=== PATIENT | female | born 1945 | race Caucasian/White ===

== ENCOUNTER 2016-10-22 05:00 | Inpatient (IN) | payer OTHER, MEDICARE ==
[2016-10-06 10:09] VITALS: BMI 37.0
--- NOTE | 2016-10-06 10:38 | PAT Medication Instructions ---
Service Date Oct 06, 2016. Current Home Medication List Aspirin (Aspirin Ec), 81 MG PO QPM B-Complex W/ Folic Acid (Super B Complex Maxi), 1 TAB PO BID Diphenhydramine Hcl (Benadryl), 1 CAP PO HS PRN for Sleep Ferrous Sulfate (Ferrous Sulfate), 325 MG PO QAM Glyburide (Micronase), 2.5 MG PO QAM Hydrocodone/Acetaminophen 5MG/325MG (Reynolds 5MG/325MG), 1 TABLET PO Q4-6H PRN for Pain Metformin Hcl (Glucophage), 500 MG PO BID Omeprazole (Prilosec), 20 MG PO QAM Pravastatin Sod (Pravastatin Sodium), 40 MG PO HS Sertraline (Zoloft), 25 MG PO HS Sumatriptan Succinate (Imitrex), 25 MG PO PRN [Magnesium], 250 MG PO BID [Neurvasia Otc], 1 TAB PO QAM Medication Instructions For Your Scheduled Surgery - Hold the following medications 2 weeks prior to surgery: [Neurvasia Otc], 1 TAB PO QAM - Hold the following medications 48 hours prior to surgery: Metformin Hcl (Glucophage), 500 MG PO BID - Hold the following medications the morning of surgery: B-Complex W/ Folic Acid (Super B Complex Maxi), 1 TAB PO BID [Magnesium], 250 MG PO BID Ferrous Sulfate (Ferrous Sulfate), 325 MG PO QAM Glyburide (Micronase), 2.5 MG PO QAM - Take the following medications the morning of surgery with a sip of water OTHERWISE NOTHING TO EAT OR DRINK AFTER MIDNIGHT: Omeprazole (Prilosec), 20 MG PO QAM Sumatriptan Succinate (Imitrex), 25 MG PO PRN Hydrocodone/Acetaminophen 5MG/325MG (Reynolds 5MG/325MG), 1 TABLET PO Q4-6H PRN for Pain (may take if needed up to 4 hours prior to surgery) - Take the following medications as scheduled the night before surgery: Pravastatin Sod (Pravastatin Sodium), 40 MG PO HS Aspirin (Aspirin Ec), 81 MG PO QPM Sertraline (Zoloft), 25 MG PO HS B-Complex W/ Folic Acid (Super B Complex Maxi), 1 TAB PO BID [Magnesium], 250 MG PO BID Sumatriptan Succinate (Imitrex), 25 MG PO PRN Hydrocodone/Acetaminophen 5MG/325MG (Reynolds 5MG/325MG), 1 TABLET PO Q4-6H PRN for Pain Diphenhydramine Hcl (Benadryl), 1 CAP PO HS PRN for Sleep If you have any questions please call us at [phone] or [phone] or [phone]
[2016-10-06 10:55] LABS: BASO % 0.6 %; BASO ABS # 0.04 K/uL (0-0.2); COMPLETE YES; EOS % 2.4 %; IG% 0.3 %; LYMPH % 22.8 %; LYMPH ABS # 1.65 K/uL (1.2-3.4); MEAN CELL VOLUME 78.9 fL (80-100); MEAN CORPUSCULAR HEMOGLOBIN 26.7 pg (25-34); MEAN CORPUSCULAR HGB CONC 33.8 g/dl (32-36); MEAN PLATELET VOLUME 9.3 fL (7.4-10.4); MONO % 6.5 %; NEUT % 67.4 %; PLATELET COUNT 204 K/uL (130-400); RED BLOOD COUNT 4.69 M/uL (4.2-5.4); WHITE BLOOD COUNT 7.23 K/uL (4.8-10.8)
[2016-10-06 11:26] LABS: BUN/CREATININE RATIO 23.2 (10-20); CALCIUM 9.2 mg/dl (8.5-10.1); CREATININE 0.69 mg/dl (0.60-1.20)
--- NOTE | 2016-10-21 08:24 | HISTORY & PHYSICAL EXAMINATION ---
DATE OF ADMISSION: 10/22/2016 CHIEF COMPLAINT: Quad tear of the right knee. HISTORY OF PRESENT ILLNESS: Raissa is a very pleasant 71-year-old female who underwent a primary right total knee arthroplasty for osteoarthritis in November of 2015. She was doing extremely well postoperatively but unfortunately she fell hard onto her knee in June. X-rays did show a crack in her patella. It was nondisplaced and we treated it conservatively. The patella healed. Unfortunately, she was having weakness with extension. She was having trouble with her quad strength, trouble going up and down stairs, and trouble getting out from a low chair. Closer examination revealed possible dehiscence of the superior medial quad repair. She elected to undergo a quad tendon repair. She understands the risks, benefits, alternatives to the procedure and has elected to proceed. PAST MEDICAL HISTORY: Osteoarthritis, anemia, GERD, colon polyps, pulmonary nodule on the right, dyslipidemia and type 2 diabetes. MEDICATIONS: [place] every 4-6 hours as needed for pain, aspirin 81 mg daily, vitamin B complex 1 tab twice a day, Benadryl 25 mg at night as needed, iron 325 mg daily, Micronase 2.5 mg daily, Glucophage 500 mg twice a day, Prilosec 20 mg daily, pravastatin 40 mg at night, Zoloft 25 mg at night, Imitrex 25 mg as needed. PAST SURGICAL HISTORY: Significant for colonoscopy, several rotator cuff repairs by Dr. Licea most recent being in 2012, as well as a left reverse total shoulder arthroplasty by Dr. Kehinde Meredith in 2014, a right total knee arthroplasty by Dr. Kehinde Meredith in November of 2015. ALLERGIES: NIACIN. FAMILY HISTORY: Noncontributory. SOCIAL HISTORY: She is single. She is a former smoker for 41 years. Denies any alcohol use. She is currently living in [place]. She is originally from [place] and moved here from [place]. REVIEW OF SYSTEMS: She complains of right knee pain and weakness. All other pertinent review of systems are negative. PHYSICAL EXAMINATION: GENERAL: She is awake, alert and oriented x3. She is in no apparent distress. She is very pleasant. HEENT: Pupils equal, round and reactive to light. Extraocular movements intact. Oral mucosa is pink and moist. HEART: Regular rate per radial pulse. LUNGS: Kirsten symmetrically bilaterally with no audible breath sounds. ABDOMEN: Soft, nontender, nondistended. MUSCULOSKELETAL: On physical examination she has good range of motion. She has a few degrees shy of full extension. She has 120 degrees of flexion. She has no ligament instability. There is no swelling or effusion. Most of her pain is located along the superior medial border of the patella. She has deformity in the quad when she extends her knee completely. She also has quad weakness. IMPRESSION: Quad rupture of the right knee. PLAN: I think it is reasonable to proceed with a quadriceps tendon repair. She understands the risks, benefits, alternatives to procedure and elected to proceed. After this is repaired will likely keep her in the hospital overnight and for postop medical observation and send her home the following day, but will see how she is doing. If she is does real well postoperatively we may also discharge her to home.
[2016-10-22] VITALS (9 sets, daily range): BP systolic 126–151; BP diastolic 72–82; PULSE 51–71; TEMP 36.4–36.8; O2SAT 93–97; Ht 172.7 cm; Wt 112.1 kg
[~2016-10-22] VITALS: Ht 172.7 cm; Wt 112.1 kg
[~2016-10-22 05:00] MED LIST: ASPI81TA28 PO; B-CO-25 PO; DIPH25CA37 PO; FRRS300 PO; GLC/500 PO; GLYB-108 PO; HYDR-5688 PO; MAGNESIUM PO; PRLSR20 PO; PRVC/40 PO; SERT25TA PO; SUMA25TA12 PO; [UNRECOGNIZED DRUG - OTHER] PO
[2016-10-22] MEDS ORDERED: LACTATED RINGER'S 1000ML 1,000 ML IV SCH (06:00)
[2016-10-22] MEDS ORDERED: LACTATED RINGER'S 1000ML IV SCH (06:00)
[2016-10-22] MEDS ORDERED: CEFAZOLIN 2000 MG/60 ML D5W 60 ML IV SCH (06:00)
[2016-10-22] MEDS ORDERED: GABAPENTIN 300 MG CAP PO SCH (06:00)
[2016-10-22] MEDS ORDERED: ACETAMINOPHEN 500 MG TAB PO SCH (06:00)
[2016-10-22] MEDS ORDERED: FAMOTIDINE 20 MG TAB PO SCH (06:00)
[2016-10-22] MEDS ORDERED: BUPIVACAINE 0.25% 30 ML VIAL ONE (06:24)
--- NOTE | 2016-10-22 06:33 | History & Physical Bridge Note ---
H&P Re-Evaluation Bridge Note: I have examined the patient, reviewed the History & Physical and in the interval since the performance of the History & Physical I have noted the following changes of clinical significance: No changes noted
[2016-10-22] MEDS ORDERED: MIDAZOLAM HCL 1 MG/ML 2ML VIAL ONE ×2 (06:41)
[2016-10-22] MEDS ORDERED: FENTANYL CITRATE INJ 50 MCG/1 ML 2 ML VIAL ONE ×2 (06:41→08:30)
[2016-10-22] MEDS ORDERED: BACITRACIN 50000 UNIT VIAL ONE (07:20)
[2016-10-22] MEDS ORDERED: DEXAMETHASONE SOD INJ 4 MG/ML VIAL ONE (07:29)
[2016-10-22] MEDS ORDERED: ONDANSETRON INJ 2 MG/ML 2 ML VIAL ONE (07:29)
[2016-10-22] MEDS ORDERED: PROPOFOL IV EMULSION 10 MG/ML 20 ML VIAL IV ONE (07:29)
--- NOTE | 2016-10-22 08:09 | [facility] Post Operative Brief Note ---
Immediate Operative Summary Operative Date Oct 22, 2016. Pre-Operative Diagnosis Quadriceps Tear Right Knee Post-Operative Diagnosis Quadriceps Tear Right Knee Procedure(s) Performed Right Quadriceps Repair Surgeon Dr. Meredith School Child Care Attendant Surgeon(s) RACHANA Yanes Estimated Blood Loss 2 ml Findings as above Specimens none per surgeon Complication(s) None Disposition Recovery Room / PACU
[2016-10-22] MEDS ORDERED: MAGNESIUM HYDROXIDE SUSP 30 ML UDC PO PRN (08:15)
[2016-10-22] MEDS ORDERED: SOD PHOSPHATE/SOD BIPHOSPHATE ENEMA 132 ML BTL PR PRN (08:15)
[2016-10-22] MEDS ORDERED: OXYCODONE HCL IR 5 MG TAB (IMMEDIATE RELEASE) PO PRN (08:15)
[2016-10-22] MEDS ORDERED: MoRPHine SULFATE 2 MG/ML CARP IV PRN (08:15)
[2016-10-22] MEDS ORDERED: ONDANSETRON INJ 2 MG/ML 2 ML VIAL IV PRN ×2 (08:15→08:30)
[2016-10-22] MEDS ORDERED: BISACODYL 10 MG SUPP PR PRN (08:15)
[2016-10-22] MEDS ORDERED: METOCLOPRAMIDE HCL INJ 5 MG/ML 2 ML VIAL IV PRN (08:15)
--- NOTE | 2016-10-22 08:21 | OPERATIVE REPORT ---
DATE OF OPERATION: 10/22/2016 PREOPERATIVE DIAGNOSIS: Quad tendon tear of the right knee. POSTOPERATIVE DIAGNOSIS: Same. PROCEDURE: Open quad tendon repair. SURGEON: Dr. Kehinde Meredith. DIRECTOR ONCOLOGY: Kehinde Massey PA-C, whose assistance was necessary for helping with retraction. ANESTHESIA: General with a right adductor nerve block. COMPLICATIONS: None. CONDITION: Stable to PACU. INDICATIONS: Raissa is a pleasant 71-year-old female who underwent a total knee arthroplasty a year ago. She fell hard on her knee about 5 months ago sustaining a nondisplaced patella fracture. The fracture went on to heal nicely but she noticed a decreased strength in her quad. I did notice that there was clinically a dehiscence in the superomedial aspect of her previous quad repair from the medial parapatellar approach. She elected to undergo a quad repair. OPERATION AND FINDINGS: On 10/22/2016 she arrived at [facility] for the above procedure. She was seen in the preoperative holding area and the operative extremity was identified and signed. She was given a preoperative antibiotic, taken back to the operating room, laid on the table in supine position and put under general anesthesia. The right leg was then prepped and draped in sterile fashion. Time-out was done and the patient and operative extremity was properly identified. An incision was made directly over the old incision site. Dissection was taken down through the fascia and the extensor mechanism was exposed. There was an obvious area of weakness between the vastus medialis and the central quad tendon. This area of weakness was removed with a sharp knife and [place] scissors. Once I had good thick tendinous tissue from both the VMO and the central quad the knee was irrigated with normal saline solution of bacitracin and the quad was repaired with #2 Vicryl sutures in the superior medial aspect and #1 Vicryl suture in the remaining proximal and distal portions. This gave an excellent repair. The knee was brought through a full range of motion and felt to be stable. The skin was then closed with 2-0 Vicryl, running 3-0 V-Loc suture and a Prineo dressing. She was then placed in a compressive dressing, extubated, [facility] and taken to the postanesthesia care unit in stable condition. She tolerated the procedure well. I attest to the content of the Intraoperative Record and any orders documented therein. Any exceptio ns are noted below.
[2016-10-22] MEDS ORDERED: HYDROmorphone INJ 1 MG/ML SYR IV PRN (08:30)
[2016-10-22] MEDS ORDERED: FENTANYL CITRATE INJ 50 MCG/1 ML 2 ML VIAL IV PRN (08:30)
[2016-10-22] MEDS ORDERED: ATROPINE SULFATE 0.1 MG/ML 5ML SYR IV PRN (08:30)
[2016-10-22] MEDS ORDERED: EpHEDrine SULFATE INJ 50 MG/ML AMP IV PRN (08:30)
--- NOTE | 2016-10-22 09:08 | Anesthesiology Progress Note ---
Anesthesia Post Op Note Date & Time Oct 22, 2016 at 09:08 Vital Signs Pain Intensity: 3 Vital Signs Past 12 Hours Date Time Temp Pulse Resp B/P Pulse Ox O2 Delivery O2 Flow Rate FiO2 10/22/16 08:55 36.1 72 12 162/79 97 Nasal Cannula 2 10/22/16 08:54 72 14 97 10/22/16 08:54 74 14 10/22/16 08:53 162/79 10/22/16 08:50 36.1 79 16 148/74 98 Nasal Cannula 2 10/22/16 08:49 71 15 10/22/16 08:49 72 15 98 10/22/16 08:48 148/74 10/22/16 08:44 76 16 98 10/22/16 08:44 75 16 10/22/16 08:43 147/71 10/22/16 08:40 72 17 10/22/16 08:40 72 17 98 10/22/16 08:38 151/70 10/22/16 08:35 73 14 94 10/22/16 08:35 74 14 10/22/16 08:33 145/84 10/22/16 08:30 76 13 99 10/22/16 08:30 76 13 10/22/16 08:28 154/78 10/22/16 08:25 78 12 10/22/16 08:25 78 12 98 10/22/16 08:23 132/78 10/22/16 08:20 80 10 10/22/16 08:20 80 10 98 10/22/16 08:18 136/85 10/22/16 08:15 36.3 85 12 131/75 97 Mask 10 10/22/16 08:15 84 10 97 10/22/16 08:15 86 10 10/22/16 05:42 36.6 68 20 131/76 96 Room Air Notes Mental Status: alert / awake / arousable, participated in evaluation Pt Amnestic to Procedure: Yes Nausea / Vomiting: adequately controlled Pain: adequately controlled Airway Patency, RR, SpO2: stable & adequate BP & HR: stable & adequate Hydration State: stable & adequate Anesthetic Complications: no major complications apparent
[2016-10-22] MEDS: SODIUM CHLORIDE 0.9% 1000ML 1,000 ML IV SCH ×2 (09:30→17:54)
[2016-10-22] MEDS: PANTOprazole SOD 40 MG TAB PO SCH (11:51)
[2016-10-22] MEDS: DOCUSATE SODIUM 100 MG CAP PO SCH ×2 (11:51→21:19)
[2016-10-22] MEDS: MULTIVITAMIN TAB PO SCH (11:51)
[2016-10-22] MEDS: FERROUS SULFATE 325 MG TAB PO SCH (11:51)
[2016-10-22] MEDS: METFORMIN HCL 500 MG TAB PO SCH ×2 (11:51→21:19)
[2016-10-22] MEDS: CEFAZOLIN IV 2,000 MG in DEXTROSE 5% 50ML 50 ML IV SCH ×2 (13:40→21:18)
[2016-10-22] MEDS: KETOROLAC TROMETHAMINE 15 MG/ML VIAL IV. SCH ×2 (15:47→21:18)
[2016-10-22] MEDS ORDERED: ASPIRIN 81 MG ECTAB PO SCH (21:00)
[2016-10-22] MEDS ORDERED: PRAVASTATIN SOD 40 MG TAB PO SCH (21:00)
[2016-10-22] MEDS ORDERED: SENNA 8.6 MG TAB PO SCH (21:00)
[2016-10-22] MEDS ORDERED: SERTRALINE HCL 50 MG TAB PO SCH (21:00)
[2016-10-22] MEDS: ASPIRIN 325 MG ECTAB PO SCH (21:20)
[2016-10-23 03:20] VITALS: BP 111/58; PULSE 65; TEMP 36.8; O2SAT 94
[2016-10-23] MEDS: KETOROLAC TROMETHAMINE 15 MG/ML VIAL IV. SCH ×2 (04:02→10:27)
[2016-10-23] MEDS: SODIUM CHLORIDE 0.9% 1000ML 1,000 ML IV SCH (04:02)
[2016-10-23 07:23] VITALS: BP 132/66; PULSE 62; TEMP 36.7; O2SAT 95
[2016-10-23 08:01] VITALS: BP 130/78; PULSE 84; TEMP 36.6; O2SAT 95
[2016-10-23] MEDS: PANTOprazole SOD 40 MG TAB PO SCH (08:29)
[2016-10-23] MEDS: DOCUSATE SODIUM 100 MG CAP PO SCH (08:29)
[2016-10-23] MEDS: MULTIVITAMIN TAB PO SCH (08:29)
[2016-10-23 08:30] VITALS: O2SAT 95
[2016-10-23] MEDS: METFORMIN HCL 500 MG TAB PO SCH (08:30)
[2016-10-23] MEDS: ASPIRIN 325 MG ECTAB PO SCH (08:30)
[2016-10-23] MEDS: FERROUS SULFATE 325 MG TAB PO SCH (08:30)
[2016-10-23] MEDS ORDERED: HYDR-5688 PO (08:57)
--- NOTE | 2016-10-23 08:59 | Discharge Instructions ---
Discharge Instructions Admission Reason for Admission: Right Quadriceps Tendon Rupture, Closed Patella Fx Discharge Discharge Diagnosis / Problem: Right Quad Repair Discharge Goals Goal(s): Decrease discomfort, Improve function Activity Recommendations Activity Limitations: resume your previous activity Shower/Bathe: may shower/bathe in 3 days . Instructions / Follow-Up Instructions / Follow-Up Leave glue dressing in place, may shower on Tuesday Current Hospital Diet Patient's current hospital diet: Diabetes Type 2 Diet Discharge Diet Recommended Diet: Regular Diet Procedures Procedures Performed: Right Quadriceps Repair Pending Studies Studies pending at discharge: no Medical Emergencies . Who to Call and When: Medical Emergencies: If at any time you feel your situation is an emergency, please call 911 immediately. . Non-Emergent Contact Non-Emergency issues call your: Surgeon Call Non-Emergent contact if: wound has increased drainage, wound has increased redness . "Provider Documentation" section prepared by Kehinde Meredith. VTE Core Measure Inpt VTE Proph given/why not?: Other Anticoagulation (Aspirin 325 daily for 6 weeks)
[2016-10-23 09:00] VITALS: BP 136/74; PULSE 61
[2016-10-23] MEDS ORDERED: SUMATRIPTAN SUCCINATE 25 MG TAB PO PRN (09:00)
--- NOTE | 2016-10-23 09:34 | PROGRESS NOTE ---
DATE: 10/23/2016 CHIEF COMPLAINT: Status post quad repair of the right knee, postop day #1. PROGRESS: Raissa was seen and examined at the bedside today. Overall, she is doing very well. She has very little pain in her knee. She has been up and ambulating and has no complaints. PHYSICAL EXAMINATION: RIGHT KNEE: The dressing is clean and dry. She has active dorsiflexion and plantarflexion of her ankle and sensation is intact. VITAL SIGNS: All stable on room air and she is voiding on her own. LABORATORY DATA: None. IMPRESSION: Status post quad repair of the right knee, postop day #1. PLAN: At this point, she is doing very well. She has been up and ambulating. Her pain is controlled. The nursing staff will change the dressing down to the Prineo and discharge her to home later this morning.
--- NOTE | 2016-10-23 10:22 | DISCHARGE SUMMARY ---
DISCHARGE DIAGNOSIS: Quad tendon rupture of the right knee. PROCEDURE: Open right quad tendon repair on 10/22/[address] Kehinde Meredith. DISCHARGE INSTRUCTIONS: 1. Aspirin 325 mg daily for 6 weeks. 2. Benadryl as needed to help sleep. 3. Iron 325 mg daily. 4. Micronase 2.5 mg daily. 5. Hydrocodone 5/325 every 4-6 hours as needed. 6. Glucophage 500 mg twice a day. 7. Prilosec 20 mg daily. 8. Pravastatin 40 mg at night. 9. Zoloft 25 mg daily. 10. Imitrex 25 mg as needed. 11. January shower on Tuesday. 12. Weightbearing as tolerated. 13. Full range of motion of the right knee. 14. Followup with Dr. Meredith in 2 weeks. 15. Call the office of Dr. Meredith with any questions or concerns. HOSPITAL COURSE: Tammy is a pleasant 71-year-old female, who had a right total knee arthroplasty done a year ago. Unfortunately, she fell hard sustaining a rupture of her right quadriceps tendon. She was able to ambulate, but had very poor push pull strength. She elected to undergo a quad tendon repair. On 10/22/2016, she underwent a right open quad tendon repair without complications. She had an adductor nerve block and a general anesthetic. Postoperatively, she was discharged to the general orthopedic floor. Her hospital course was uneventful. On postop day #1, she was already up and ambulating. She participated well with physical therapy. Her pain was controlled. The dressing was changed and she was subsequently discharged to home with the above instructions.
[2016-10-23 10:36] VITALS: BP 136/74; PULSE 61; TEMP 36.6; O2SAT 95
== END 2016-10-23 11:00 | disposition home or self-care (01) | DRG 909 ==
LOC: ENRESERVTM → ENRESERVDT → C.ACU 05:00 → C.3E 06:29
PROVIDERS: ADMIT Orthopaedic Surgery; ATTEND Orthopaedic Surgery
PROC: 0KQQ0ZZ Repair Right Upper Leg Muscle, Open Approach (ICD-10-PCS; principal; 2016-10-22 07:00)
DX: S76.191A Other specified injury of right quadriceps muscle, fascia and tendon, initial encounter (principal); Z96.651 Presence of right artificial knee joint; K21.9 Gastro-esophageal reflux disease without esophagitis; Z87.891 Personal history of nicotine dependence; W19.XXXA Unspecified fall, initial encounter; Y92.9 Unspecified place or not applicable

== ENCOUNTER → 2017-01-27 | Outpatient (CLI) | payer OTHER, MEDICARE ==
--- NOTE | 2017-01-28 06:01 | PAP/PSG TECHNICIAN REPORT ---
[facility] Insurance Verifier Polysomnogram Report Study name: None Report date: 01/28/2017 Study date: 01/27/2017 Referring Physician: Noel CALDERON M.D. Name: SHERLY SAMAYOA I Interpreting Physician: Evangelista Calderon M.D. Date of : 1945 Insurance Verifier: Dinora Calle RPSGT. Sex: Female Age: 71 Study Type: PSG Weight: 248 lbs 15 in Height: 71 years, Height 5' 8.5" Neck Circum: BMI: 37.16 Medications: FERROUS SULFATE 325 MG, B COMPLEX VIT, MAGNESIUM 250 MG, ATORVASTATIN 40 MG, SYMBICORT 80-4.5 MCG/ACT, SERTRALINE 25 MG, GLYBUIDE 2.5 MG, OMEPRAZOLE 20 MG, METFORMIN 500 MG, ASPIRIN 81 MG Patient History 71 yr-old female here for a baseline/split study. She has a history of snoring, daytime sleepiness, and headaches. Her [place] scale is 10. The test was started on room air. ETCO2 testing was not utilized during this study. Room 1 Parameters Monitored NPSG: E1-M2, E2-M1, Fp1-M2, Fp2-M1, F3-M2, F4-M2, F4-M1, C3-M2, C4-M2, C4-M1, O1-M2, O2-M2, O2-M1, T3-M2, T4-M1, P3-M2, P4-M1, CHIN1, CHIN2, HR, EKG, Legs, PFLOW, SNOR, FLOW, CFLOW, Tidal Volume, THOR, ABDO, SpO2, PLTH, CPRESS, ETCO2 Wave, ETCO2, pH Sleep Architecture Sleep Stages Time at Lights Off 10:15:20 PM STAGES Time (min.) TST (%) Time at Lights On 5:27:50 AM Wake 95.5 -- Total Recording Time (TRT) 432.50 min. N1 46.0 14 Total Sleep Period (TSP) 363.0 min. N2 220.5 65 Total Sleep Time (TST) 337.0min. N3 7.0 2 Awake Time 95.5 min. REM 63.5 19 Wake after Sleep Onset 36.0 min. Sleep Efficiency (SE) 78 % Sleep Onset Latency (RAJ) 59.5 min. Number of Stage 1 Shifts None Awakenings 16 Stage Changes 96 Number of REM periods 5 REM 63.5 19 REM Latency 114.0 min. NREM 273.5 81 Body Position Analysis Supine Right Left Side Prone Vertical Total Sleep Time (min.) 422.6 0.0 0.0 0.00 0.0 0.0 Total Sleep Time (%) 100% 0% 0% 0 0% N/A% Total Sleep Time REM (min.) 63.5 0.0 0.0 None 0.0 0.0 Total Sleep Time NREM (min.) 273.5 0.0 0.0 None 0.0 0.0 Intermittent Wake (min.) 85.6 9.9 0.0 None 0.0 0.0 Total Sleep Period (%) 100% None None None None None Arousals Myoclonus (PLM) * Events Count Index Events Count Index Spontaneous 31 6 Events Awake (PLMW) 64 40.2 Respiratory 12 2.7 Events Asleep w/ Arousal (PLMA) 27 4.8 PLM 27 5 Events Asleep w/o Arousal (PLMS) 162 28.8 Snoring 12 2 Total Asleep 189 33.6 Total 82 15 Total 253 35 Respiratory Analysis * CA OA MA CH H RERA Total Count 16 14 2 0 100 5 132 Index 2.8 2.5 0.4 0 17.8 1 24.4 Mean Duration 13.7 12.7 13.4 0.00 16.6 18.1 15.8 Longest Duration 19.2 18.6 14.5 0.00 14.5 20.8 37.7 Respiratory Event Summary Total Supine ~Supine Right Left Prone REM NREM Apneas Count 32 32 N/A N/A N/A N/A 4 28 Index 5.7 6 N/A N/A N/A N/A 4 6 Hypopneas (4% Desat) Count 100 100 N/A N/A N/A N/A 59 41 Index 17.8 17.8 N/A N/A N/A N/A 55.7 9.0 Apneas & All Hypopneas Count 132 132 N/A N/A N/A N/A 63 69 Index 23.5 24 N/A N/A N/A N/A 59.5 15.1 Respiratory Events (Custom Feed Corn Operator+All Hyp+RERA) Count 132 137 N/A N/A N/A N/A 63 69 Index 24.4 24 N/A N/A N/A N/A 60.5 16.0 Respiratory Related Arousal Count 12 137 N/A N/A N/A N/A 5 10 Index 2.7 3 N/A N/A N/A N/A 5 2 Snoring Analysis Supine Right Left Prone REM NREM Total Snore duration 31.2 min Snores count 1,458 N/A N/A N/A 507 951 1,458 Snore mean duration 1.3 Sec Snores index 260 N/A N/A N/A 479.1 208.6 259.6 TST with snoring (%) 9.3% Desaturation Event Summary: Minimum %SpO2 Event Count Mean/Min/Max Duration(sec.) Desaturation Index % Time In Bed > 90 136 24.8 / 9.5 / 60.0 76.4 24.9 86 - 90 109 20.9 / 4.8 / 53.5 21.5 71.1 81 - 85 9 16.5 / 4.8 / 28.8 39.1 3.2 76 - 80 1 20.8 / 20.8 / 20.8 19.1 0.7 71 - 75 0 N/A 0.0 0.0 66 - 70 0 N/A 0.0 0.0 61 - 65 0 N/A 0.0 0.0 56 - 60 0 N/A 0.0 0.0 51 - 55 0 N/A 0.0 0.0 < 50 0 N/A 0.0 0.0 Total REM NREM Awake <50% 0.0 min. 0.0 min. 0.0 min. 0.0 min. 51 - 60% 0.0 min. 0.0 min. 0.0 min. 0.0 min. 61 - 70% 0.0 min. 0.0 min. 0.0 min. 0.0 min. 71 - 80% 3.2 min. 2.9 min. 0.0 min. 0.3 min. 81 - 90% 318.6 min. 45.6 min. 235.0 min. 38.0 min. 91 - 100% 106.8 min. 15.0 min. 38.5 min. 53.3 min. Average 89 88 89 91 Minimum SpO2 75 75 82 79 Desaturation Event Index 24.7 62.4 19.5 15.1 # Desat. Events below 89% 141 64 69 8 Time(%) with Saturation below 89% 35.8 7.4 26.8 1.6 Time(min.) with Saturation below 89% 153.3 31.5 114.8 7.0 Time (mins) REM (mins) NREM (mins) % of TST SpO2 Below 90% 153 66 N87 69.1 SpO2 Below 88% 49 0 0 22 Heart Rate Analysis Min (bpm) Max (bpm) Average (bpm) Awake 55 87 72 NREM 53 87 66 REM 50 79 66 Overall 50 87 66 Supplemental O2 Values Minimum O2 level: None Value Start Time End Time Insurance Verifier Comments Ms. Samayoa slept in the right and supine positions. No cardiac arrhythmias were noted. PLMs were noted. No bruxism noted. Snoring was noted and scored as a 3-4 on a scale of 1 through 5. (0=no snoring, 5=snoring loud enough to be heard through a closed door or down the [address] way) She did not meet specific Split-Night criteria during the diagnostic portion of this study. She did not wake up to use the restroom during the night. Ms. Samayoa stated that she slept about the same as usual. The final report will be interpreted and signed by a sleep physician. The completed physician report will then be placed in the patient medical record. Therapy (cm H2O) 0 TIB (min.) 432.5 TST (min.) 337.0 Sleep Onset (min.) 59.5 REM Onset From Sleep (min.) 114.0 Sleep Efficiency % 78 Wakefulness (%) 22 Wakefulness (min.) 95.5 NREM 1 (%) 14 NREM 1 (min.) 46.0 NREM 2 (%) 65 NREM 2 (min.) 220.5 NREM 3 (%) 2 NREM 3 (min.) 7.0 REM (%) 19 REM (min.) 63.5 # Arousals 82 Arousal Index 15 # Snore 1,458 Snore Index 259.6 AHI 23.5 AHI Supine 24 AHI Non-Supine N/A NREM AHI 15.1 REM AHI 59.5 RDI 24.4 # Obstructive Apnea 14 # Central Apnea 16 # Mixed Apnea 2 # Hypopneas 100 RERAs 5 Total Respiratory Events 138 Time Below SpO2 89% (min.) 146.3 Mean NREM SpO2 (%) 89 Mean REM SpO2 (%) 88 Mean Sleep SpO2 (%) 89 Min NREM SpO2 (%) 82 Min REM SpO2 (%) 75 Position Supine (min.) 422.6 Position Non-supine (min.) 0.0 LM Index Sleep 33.6 LM Index NREM 36.0 LM Index REM 23.6 Mean Heart Rate (bpm) 66 Min Heart Rate (bpm) 50
--- NOTE | 2017-02-14 07:49 | POLYSOMNOGRAPH REPORT ---
REFERRING PERSON: Dr. Venancio Calderon. CORNER CUTTER MACHINE OPERATOR: Dinora Calle. Ms. Samayoa is a 71-year-old female sent for a baseline split night sleep study. She has a history of snoring, excessive daytime sleepiness and headaches. Her [place] sleepiness scale score on the evening of this study is 10. BMI is 37.16. Following the technical and digital specifications of the [place] [employer] (AASM) a standard diagnostic polysomnogram was performed monitoring EEG, EOG, EMG (chin and leg deviations), oxygen saturation, body position, digital video, respiratory effort and airflow. The sleep Stage and event scoring was based on the AASM Manual for the Scoring of Sleep and Associated Events 2007 edition. Apneas are defined as a drop in the peak thermal sensor excursion by >90% of baseline for at least 10 seconds. Hypopneas were scored using the 4% oxygen desaturation rule (4A-Medicare) and a decrease in the nasal pressure excursions by >30% of baseline for at least 10 seconds. Respiratory effort-related arousal (RERA's) is defined as a sequence of breaths lasting at least 10 seconds characterized by increasing respiratory effort or flattening of the nasal pressure waveform leading to an arousal from sleep when the sequence of breaths does not meet criteria for an apnea or hypopnea. Apnea Hypopnea index (AHI) is defined as the number of apneas and hypopneas occurring in an hour of sleep. Respiratory disturbance index (RDI) is defined as the number of apneas, hypopneas, and RERA's occurring in an hour of sleep. Ms. Samayoa's total sleep period time was 363 minutes. Total sleep time was 337 minutes. Sleep efficiency was 78%. Latency to sleep onset was 59.5 minutes with wake after sleep onset of 36 minutes. Total non-REM sleep time was 273.5 minutes. She spent 14% of that time in N1 sleep, 65% in N2 sleep and 2% in N3 sleep. REM latency was 140 minutes. Total REM sleep time was 63.5 minutes or 19% of total sleep time. There were 82 cortical arousals from sleep. Thirty one of these arousals were spontaneous, 12 were due to respiratory events, 27 were due to periodic limb movements of sleep, and 12 were due to snoring. There were 189 periodic limb movements noted on this test. Limb movement index was 33.7. Limb movement with arousal index was 4.8. There were 16 central apneas, 14 obstructive apneas and 2 mixed apneas on this test. Additionally, there were 100 hypopnea. Apnea-hypopnea index was 23.5. This is consistent with moderately severe sleep apnea. Supine AHI was 24. REM AHI was 59.5. Most of these hypopneas were obstructive so overall there was more obstructive than central apnea on this test. There were 1458 snoring events recorded on this test. Total sleep time with snoring was 9.3%. Mean saturation was 89% with desaturations to 75%. Saturations were less than 89% for 153.3 minutes of recorded time. There was no cardiac ectopy noted on this study. Heart rates during sleep ranged from a low of 50 beats per minute to a high of 87 beats per minute. IMPRESSION AND PLAN: A 71-year-old female with evidence of moderately severe sleep apnea and very significant nocturnal hypoxemia on this study. 1. This patient would likely benefit from positive airway pressure therapy. She should return to the sleep lab for a full night titration and then based on those results be started on equipment at home. A download from her machine should be reviewed in 1 month both to check compliance as well as AHI and further pressure adjustments occur at that time. 2. Should this patient be unwilling or unable to tolerate CPAP therapy. She should be referred to ear, nose and throat or oral surgery/dental medicine (if appropriate) to discuss alternatives for her sleep disordered breathing. However, during the interval, she may need to be started on oxygen therapy.
== END | disposition home or self-care (01) ==
LOC: C.NEUR 20:00
PROVIDERS: ATTEND Family Medicine
DX: G47.33 Obstructive sleep apnea (adult) (pediatric) (principal); E66.9 Obesity, unspecified; Z68.35 Body mass index [BMI] 35.0-35.9, adult; R06.83 Snoring

== ENCOUNTER → 2017-03-27 | Outpatient (CLI) | payer OTHER, MEDICARE ==
--- NOTE | 2017-03-28 05:45 | PAP/PSG TECHNICIAN REPORT ---
[facility] Collar Shaper Operator Polysomnogram Report Study name: None Report date: 03/28/2017 Study date: 03/27/2017 Referring Physician: Noel CALDERON M.D. Name: CHAVO SHERLY I Interpreting Physician: Evangelista Calderon M.D. Date of : 1945 Collar Shaper Operator: Aracelis Barahona RPS. Sex: Female Age: 71 StudyType: PSG PAP Weight: 248 lbs Height: 71 years, Height 5' 8.5" Neck Circum:15inches BMI: 37.16 Medications: Ferrous Sulfate 325mg, B Complex Vitamin, Magnesium 250mg, Atorvastatin 40mg, Symbicort 80-4.5mcg/act, Sertraline 25mg, Glyburide 2.5mg, Omeprazole 20mg, Metformin 500mg, ASA 81mg Patient History Study started on room air with 4cwp cpap in room #6. 71 yr old female here tonight for a new titration study. She had a diagnostic psg done here on 01/27/17 and had an AHI of 23.5. Her ESS=10/24. Neck circ=15inches. Parameters Monitored NPSG: E1-M2, E2-M1, Fp1-M2, Fp2-M1, F3-M2, F4-M2, F4-M1, C3-M2, C4-M2, C4-M1, O1-M2, O2-M2, O2-M1, T3-M2, T4-M1, P3-M2, P4-M1, CHIN1, CHIN2, HR, EKG, Legs, PFLOW, SNOR, FLOW, CFLOW, Tidal Volume, THOR, ABDO, SpO2, PLTH, CPRESS, ETCO2 Wave, ETCO2, pH Sleep Architecture Sleep Stages Time at Lights Off 10:10:43 PM STAGES Time (min.) TST (%) Time at Lights On 5:37:13 AM Wake 122.0 -- Total Recording Time (TRT) 446.50 min. N1 38.0 12 Total Sleep Period (TSP) 409.0 min. N2 186.5 57 Total Sleep Time (TST) 324.5min. N3 33.0 10 Awake Time 122.0 min. REM 67.0 21 Wake after Sleep Onset 84.5 min. Sleep Efficiency (SE) 73 % Sleep Onset Latency (RAJ) 37.5 min. Number of Stage 1 Shifts None Awakenings 29 Stage Changes 121 Number of REM periods 5 REM 67.0 21 REM Latency 256.0 min. NREM 257.5 79 Body Position Analysis Supine Right Left Side Prone Vertical Total Sleep Time (min.) 446.5 0.0 0.0 0.00 0.0 0.0 Total Sleep Time (%) 100% 0% 0% 0 0% N/A% Total Sleep Time REM (min.) 67.0 0.0 0.0 None 0.0 0.0 Total Sleep Time NREM (min.) 257.5 0.0 0.0 None 0.0 0.0 Intermittent Wake (min.) 122.0 0.0 0.0 None 0.0 0.0 Total Sleep Period (%) 100% None None None None None Arousals Myoclonus (PLM) * Events Count Index Events Count Index Spontaneous 12 2 Events Awake (PLMW) 157 77.2 Respiratory 17 3.3 Events Asleep w/ Arousal (PLMA) 25 4.6 PLM 25 5 Events Asleep w/o Arousal (PLMS) 175 32.4 Snoring 1 0 Total Asleep 200 37.0 Total 55 10 Total 357 48 Respiratory Analysis * CA OA MA CH H RERA Total Count 8 22 0 0 32 1 62 Index 1.5 4.1 0.0 0 5.9 0 11.6 Mean Duration 16.4 27.2 0.0 0.00 24.9 26.8 24.7 Longest Duration 27.9 45.2 0.0 0.00 0.0 26.8 58.1 Respiratory Event Summary Total Supine ~Supine Right Left Prone REM NREM Apneas Count 30 30 N/A N/A N/A N/A 11 19 Index 5.5 6 N/A N/A N/A N/A 10 4 Hypopneas (4% Desat) Count 32 32 N/A N/A N/A N/A 1 31 Index 5.9 5.9 N/A N/A N/A N/A 0.9 7.2 Apneas & All Hypopneas Count 62 62 N/A N/A N/A N/A 12 50 Index 11.5 11 N/A N/A N/A N/A 10.7 11.7 Respiratory Events (Clipper Counters+All Hyp+RERA) Count 62 63 N/A N/A N/A N/A 12 50 Index 11.6 12 N/A N/A N/A N/A 10.7 11.9 Respiratory Related Arousal Count 17 63 N/A N/A N/A N/A 5 13 Index 3.3 3 N/A N/A N/A N/A 4 3 Snoring Analysis Supine Right Left Prone REM NREM Total Snore duration 2.2 min Snores count 68 N/A N/A N/A 8 60 68 Snore mean duration 1.9 Sec Snores index 13 N/A N/A N/A 7.2 14.0 12.6 TST with snoring (%) 0.7% Desaturation Event Summary: Minimum %SpO2 Event Count Mean/Min/Max Duration(sec.) Desaturation Index % Time In Bed > 90 67 34.0 / 5.0 / 60.0 9.9 92.4 86 - 90 4 23.8 / 12.0 / 54.0 7.2 7.6 81 - 85 0 N/A 0.0 0.0 76 - 80 0 N/A 0.0 0.0 71 - 75 0 N/A 0.0 0.0 66 - 70 0 N/A 0.0 0.0 61 - 65 0 N/A 0.0 0.0 56 - 60 0 N/A 0.0 0.0 51 - 55 0 N/A 0.0 0.0 < 50 0 N/A 0.0 0.0 Total REM NREM Awake <50% 0.0 min. 0.0 min. 0.0 min. 0.0 min. 51 - 60% 0.0 min. 0.0 min. 0.0 min. 0.0 min. 61 - 70% 0.0 min. 0.0 min. 0.0 min. 0.0 min. 71 - 80% 0.0 min. 0.0 min. 0.0 min. 0.0 min. 81 - 90% 33.4 min. 2.2 min. 24.7 min. 6.6 min. 91 - 100% 406.2 min. 64.8 min. 232.9 min. 108.6 min. Average 93 93 93 93 Minimum SpO2 86 86 87 88 Desaturation Event Index 9.0 7.2 11.4 4.9 # Desat. Events below 89% 17 1 16 N/A Time(%) with Saturation below 89% 0.8 0.1 0.6 0.0 Time(min.) with Saturation below 89% 3.4 0.7 2.6 0.1 Time (mins) REM (mins) NREM (mins) % of TST SpO2 Below 90% 46 6 N40 3.2 SpO2 Below 88% 9 0 0 0 Heart Rate Analysis Min (bpm) Max (bpm) Average (bpm) Awake 56 127 70 NREM 53 82 63 REM 55 71 63 Overall 53 82 63 Supplemental O2 Values Minimum O2 level: None Value Start Time End Time Collar Shaper Operator Comments Mrs. Samayoa slept in the supine position. No cardiac arrhythmia noted. PLM's noted. No bruxism noted. CPAP was initiated at +4 CMH2O and up-titrated to a level of + 15 CMH2O. A small Airfit F20 full face mask by [employer] was used during titration. She awoke to use the restroom 1 times during the night. She stated that she slept worse than when at home. The final report will be interpreted and signed by a sleep physician. The completed physician report will then be placed in the patient medical record. Therapy Event: Therapy (cm H20) 4 6 8 10 12 13 14 15 Total Time at Pressure (min.) 45.6 32.9 22.3 30.8 62.2 117.8 25.5 109.3 TST at Pressure (min.) 7.6 14.9 20.3 28.8 39.2 87.3 25.5 100.8 # Periods 1 1 1 1 1 1 1 1 Sleep Onset (min.) 37.5 0.0 0.0 0.0 0.0 0.0 0.0 0.0 REM Onset (min.) N/A N/A N/A N/A N/A 99.6 0.0 0.0 Sleep Efficiency % 16 45 91 93 63 74 100 92 Wakefulness (%) 83.2 54.8 8.9 6.5 37.0 25.9 0.0 7.8 Wakefulness (min.) 38.0 18.0 2.0 2.0 23.0 30.5 0.0 8.5 NREM 1 (%) 3.3 13.7 11.2 11.3 9.6 5.9 0.0 11.9 NREM 1 (min.) 1.5 4.5 2.5 3.5 6.0 7.0 0.0 13.0 NREM 2 (%) 13.5 31.5 79.9 82.2 45.3 49.8 0.0 36.6 NREM 2 (min.) 6.1 10.4 17.8 25.3 28.2 58.6 0.0 40.0 NREM 3 (%) 0.0 0.0 0.0 0.0 8.0 4.7 0.0 20.6 NREM 3 (min.) 0.0 0.0 0.0 0.0 5.0 5.5 0.0 22.5 REM (%) 0.0 0.0 0.0 0.0 0.0 13.7 100.0 23.2 REM (min.) 0.0 0.0 0.0 0.0 0.0 16.2 25.5 25.3 # Arousals 2 7 3 10 10 6 4 13 Arousal Index 15.7 28.2 8.8 20.8 15.3 4.1 9.4 7.7 # Snore 1 7 10 19 13 6 6 6 Snore Index 7.8 28.2 29.5 39.5 19.9 4.1 14.1 3.6 AHI 62.8 28.2 32.4 20.8 18.4 1.4 21.2 1.8 AHI Supine 62.8 28.2 32.4 20.8 18.4 1.4 21.2 1.8 AHI Non-Supine N/A N/A N/A N/A N/A N/A N/A N/A NREM AHI 62.8 28.2 32.4 20.8 18.4 0.0 N/A 1.6 REM AHI N/A N/A N/A N/A N/A 7.4 21.2 2.4 RDI 62.8 28.2 32.4 22.9 18.4 1.4 21.2 1.8 # Obstructive 0 0 2 3 6 1 9 1 # Central Ap 2 3 0 0 2 0 0 1 # Mixed 0 0 0 0 0 0 0 0 # Hypopneas 6 4 9 7 4 1 0 1 RERAS 0 0 0 1 0 0 0 0 Total Respiratory Events 8 7 11 11 12 2 9 3 Time Below SpO2 89.00% (min.) 0.2 0.4 1.0 0.7 0.3 0.0 0.4 0.2 Mean NREM SpO2 (%) 91 92 91 92 93 93 N/A 93 Mean REM SpO2 (%) N/A N/A N/A N/A N/A 93 93 93 Mean Sleep SpO2 (%) 91 92 91 92 93 93 93 93 Min NREM SpO2 (%) 87 87 87 88 87 89 N/A 91 Min REM SpO2 (%) N/A N/A N/A N/A N/A 89 86 87 Position Supine (min.) 7.6 14.9 20.3 28.8 39.2 87.3 25.5 100.8 Position Non-supine (min.) 0.0 0.0 0.0 0.0 0.0 0.0 0.0 0.0 LM Index Sleep 47.1 121.1 47.2 58.3 29.1 35.7 21.2 23.8 LM Index NREM 47.1 121.1 47.2 58.3 29.1 41.3 N/A 24.6 LM Index REM N/A N/A N/A N/A N/A 11.1 21.2 21.3 Mean Heart Rate (bpm) 70 68 67 68 65 63 62 61 Min Heart Rate (bpm) 63 58 59 55 55 54 55 53
--- NOTE | 2017-04-19 09:33 | POLYSOMNOGRAPH REPORT ---
TEST DATE: 03/27/2017. REFERRING PERSON: Dr. Evangelista Calderon. STACKER AND SORTER OPERATOR: Aracelis Barahona. Ms. Samayoa is a 71-year-old female sent for a CPAP titration study. She had a diagnostic PSG performed on 01/27/2017 which showed an AHI of 23.5. Her Morton Sleepiness Scale score on the evening of this study is 10. BMI is 37.16. Following the technical and digital specifications of the [place] [employer] (AASM) a standard diagnostic polysomnogram was performed monitoring EEG, EOG, EMG (chin and leg deviations), oxygen saturation, body position, digital video, respiratory effort and airflow. The sleep Stage and event scoring was based on the AASM Manual for the Scoring of Sleep and Associated Events 2007 edition. Apneas are defined as a drop in the peak thermal sensor excursion by >90% of baseline for at least 10 seconds. Hypopneas were scored using the 4% oxygen desaturation rule (4A-[employer]ic[employer]) and a decrease in the nasal pressure excursions by >30% of baseline for at least 10 seconds. Respiratory effort-related arousal (RERA's) is defined as a sequence of breaths lasting at least 10 seconds characterized by increasing respiratory effort or flattening of the nasal pressure waveform leading to an arousal from sleep when the sequence of breaths does not meet criteria for an apnea or hypopnea. Apnea Hypopnea index (AHI) is defined as the number of apneas and hypopneas occurring in an hour of sleep. Respiratory disturbance index (RDI) is defined as the number of apneas, hypopneas, and RERA's occurring in an hour of sleep. Ms. Samayoa's total sleep period time was 409 minutes. Total sleep time was 324.5 minutes. Sleep efficiency was 73%. Latency to sleep onset was 37.5 minutes with wake after sleep onset of 84.5 minutes. Total non-REM sleep time was 257.5 minutes. She spent 12% of that time in N1 sleep, 57% in N2 sleep and 10% in N3 sleep. REM latency was 256 minutes. Total REM sleep time was 67 minutes or 21% of total sleep time. There were 55 cortical arousals from sleep. Twelve of these arousals were spontaneous, 17 were due to respiratory events, 25 due to periodic limb movements of sleep and 1 was due to snoring. There were 200 periodic limb movements noted on this test. Limb movement index was 37. Limb movement with arousal index was 4.6. During this titration, there were 8 central apneas, 22 obstructive apnea and no mixed apnea. Additionally, there were 32 hypopnea. Apnea-hypopnea index during the titration was 11.5. Sixty-eight snoring events were recorded. Total sleep time with snoring was 0.7%. Mean saturation was 93% with desaturations to 86% with saturations less than 89 for only 3.4 minutes of recorded time. There was no cardiac ectopy noted on this study. Heart rates ranged from a low of 53 beats per minute to a high of 82 beats per minute during sleep. As stated above, this was a CPAP titration study. Ms. Samayoa chose a small AirFit F20 full facemask by [employer] for her titration. She was titrated from a CPAP pressure of 4 to a CPAP pressure of 15 over the course of the night. Increasing pressures were needed to prevent apneas, hypopneas and arousals. She was observed on a pressure of 15 for 100.8 minutes of sleep time. There were 25.3 minutes of supine REM sleep on this pressure. AHI and RDI on this pressure were both 1.8 and saturations were less than 89% for only 0.2 minutes of recorded time. IMPRESSION AND PLAN: Successful CPAP titration study in this patient with moderately severe sleep apnea. I would start this patient on CPAP at a pressure of 15. A download from her machine can be reviewed in 1 month both to check compliance as well as AHI and further pressure adjustments can occur at that time.
== END | disposition home or self-care (01) ==
LOC: C.NEUR 20:00
PROVIDERS: ATTEND Family Medicine
DX: R06.83 Snoring (principal); B66 Other fluke infections; G47.33 Obstructive sleep apnea (adult) (pediatric)

== ENCOUNTER → 2018-02-02 | Outpatient (CLI) | payer OTHER, MEDICARE ==
--- NOTE | 2018-02-02 17:33 | DIAGNOSTIC IMAGING REPORT ---
RIGHT KNEE MRI HISTORY: Fall. Right knee pain. Distal quadriceps tendon tear. COMPARISON STUDY: Bilateral knee radiograph 01/30/2018. TECHNIQUE: Multiplanar multisequence MRI of the right knee was performed according to standard department protocol without the use of contrast. FINDINGS: There is a right total knee arthroplasty. This results in essentially nondiagnostic evaluation of the knee due to the metallic artifact. In addition, this results in significant artifact along the distal quadriceps tendon. However, there is no significant edema or retraction at the distal quadriceps tendon. Therefore, there is no evidence for full-thickness tear of the distal quadriceps tendon tear. No significant knee effusion. No fractures within the visualized osseous structures. There is diffuse muscle atrophy. IMPRESSION: 1. Essentially nondiagnostic evaluation of the knee due to the metallic artifact from the right total knee arthroplasty. 2. The distal quadriceps tendon is also not well visualized. However, there is no evidence for a full-thickness quadriceps tendon tear. Electronically signed by: Hubert Ross M.D. 02/02/2018 5:32 PM Dictated Date/Time: 02/02/2018 5:26 PM
== END | disposition home or self-care (01) ==
LOC: C.MRIBC 15:28
PROVIDERS: ATTEND Orthopaedic Surgery
DX: M25.561 Pain in right knee (principal); Z96.651 Presence of right artificial knee joint

== ENCOUNTER → 2018-04-11 | Outpatient (CLI) | payer OTHER, MEDICARE ==
--- NOTE | 2018-04-11 11:40 | DIAGNOSTIC IMAGING REPORT ---
LUMBAR SPINE W/O CONTRAST HISTORY: Pain BACK AND LEG PAIN TECHNIQUE: Multiplanar multisequence MRI of the lumbar spine was performed without the use of contrast. COMPARISON: None. FINDINGS: For the purpose of the report the L5-S1 disc space will be located on axial image 3537. Mild scoliosis. Degenerative disc change throughout. Multilevel narrowing of the spinal canal. L1-L2: Mild broad-based disc herniation. Mild impact anterior thecal sac. Mild narrowing of the neuroforamina bilaterally right L2-L3: Mild multifactorial narrowing of the spinal canal. Mild narrowing of the neuroforamina bilaterally. L3-L4: Moderate rather significant multifactorial narrowing of the spinal canal. Mild broad-based disc herniation. Hypertrophic changes of the posterior elements. L4-L5: Significant multifactorial narrowing of the spinal canal. Minimal narrowing of the neuroforamina bilaterally. L5-S1: Focal right posterior disc herniation with narrowing of the right neuroforamina. Left neuroforamina is patent. IMPRESSION: 1. Focal right posterior disc herniation L5-S1 with moderate osteophytic narrowing of the right neuroforamina. 2. Multifactorial, multilevel narrowing of the spinal canal and neural foramina as described. 3. Generalized degenerative disc change throughout. The above report was generated using voice recognition software. It may contain grammatical, syntax or spelling errors. Electronically signed by: Joseluis Vargas M.D. 04/11/2018 11:38 AM Dictated Date/Time: 04/11/2018 11:33 AM
== END | disposition home or self-care (01) ==
LOC: C.MRIBC 10:31
PROVIDERS: ATTEND Orthopaedic Surgery
DX: M51.27 Other intervertebral disc displacement, lumbosacral region (principal); M48.061 Spinal stenosis, lumbar region without neurogenic claudication; M47.816 Spondylosis without myelopathy or radiculopathy, lumbar region; M79.606 Pain in leg, unspecified

== ENCOUNTER 2019-03-16 07:02 | Inpatient (IN) ==
--- NOTE | 2019-02-12 17:08 | PAT Medication Instructions ---
Medication Instructions Date of Service February 12, 2019 Home Medications aspirin [Aspir-81] 81 mg PO HS atorvastatin 40 mg PO QAM cyanocobalamin (vitamin B-12) 5,000 mcg SUBLINGUAL QAM diphenhydramine HCl [Benadryl] 25 mg PO HS PRN ferrous sulfate 325 mg PO QAM glyburide 5 mg PO QAM magnesium 250 mg PO QAM metformin 500 mg PO BID multivitamin 1 cap PO QAM omeprazole 20 mg PO QAM sertraline 25 mg PO QAM DO NOT take the morning of surgery cyanocobalamin (vitamin B-12) 5,000 mcg SUBLINGUAL QAM ferrous sulfate 325 mg PO QAM glyburide 5 mg PO QAM magnesium 250 mg PO QAM metformin 500 mg PO BID multivitamin 1 cap PO QAM Take morning of surgery With a small sip of water, OTHERWISE NOTHING TO EAT OR DRINK AFTER MIDNIGHT: atorvastatin 40 mg PO QAM omeprazole 20 mg PO QAM sertraline 25 mg PO QAM Take evening before surgery aspirin [Aspir-81] 81 mg PO HS diphenhydramine HCl [Benadryl] 25 mg PO HS PRN (if needed) metformin 500 mg PO BID Other Notes If you have any questions please call us at [phone] or [phone] or [phone] or [phone]
--- NOTE | 2019-02-13 10:36 | Anesthesiology Consultation ---
Date of Service February 13, 2019 Assessment & Plan (1) Encounter for pre-operative examination: CHECK BSG AM DOS Chart Review Chart Review: Acceptable Risk for Surgery and Patient seen in Pre Admission Testing Teaching & Discussion Instructed NPO after midnight before surgery, except medications with 15 cc of water. Medication instructions provided according to the [facility] guidelines. History Surgery Operation Date: 03/16/19 08:50 Proposed Procedures p Right Reverse Total Shoulder Arthroplasty - Kehinde Meredith DO Height/Weight Height: 5 ft 8 in Weight: 107.6 kg Allergies Allergy/AdvReac Type Severity Reaction Status Date / Time niacin AdvReac Unknown Flushing/ Verified 02/06/19 09:56 Lightheaded Medications Home Medications Medication Instructions Recorded Confirmed Last Taken aspirin [Aspir-81] 81 mg PO HS 02/06/19 02/06/19 02/05/19 atorvastatin 40 mg PO QAM 02/06/19 02/06/19 02/06/19 cyanocobalamin (vitamin B-12) 5,000 mcg SUBLINGUAL QAM 02/06/19 02/06/19 02/06/19 [Vitamin B-12] diphenhydramine HCl [Benadryl] 25 mg PO HS PRN 02/06/19 02/06/19 Unknown ferrous sulfate 325 mg PO QAM 02/06/19 02/06/19 02/06/19 glyburide 5 mg PO QAM 02/06/19 02/06/19 02/06/19 magnesium 250 mg PO QAM 02/06/19 02/06/19 02/06/19 metformin 500 mg PO BID 02/06/19 02/06/19 02/06/19 multivitamin 1 cap PO QAM 02/06/19 02/06/19 02/06/19 omeprazole 20 mg PO QAM 02/06/19 02/06/19 02/06/19 sertraline 25 mg PO QAM 02/06/19 02/06/19 02/06/19 Past Medical History Medical History Acid reflux Back problem COPD (chronic obstructive pulmonary disease) No inhalers. Some HUYNH. Cardiac murmur I/ systolic on exam at [facility]. Trace to mild noted on 2018 echo. Diabetes Hyperlipidemia Sleep apnea CAN'T TOLERATE CPAP Exercise / Class Metabolic Activity III < 4 Walking/Shop/Light housework (Mild SOB with ambulation on one level, denies CP.) Past Family History Family History Mother Family history of ovarian cancer Sister Family history of lung cancer Family history of brain cancer Past Surgical History Surgical History History of colonoscopy History of repair of left rotator cuff History of repair of left rotator cuff ANCHORS CAME OUT AND REPAIRED History of repair of right rotator cuff History of total replacement of left shoulder joint History of total right knee replacement Past Anesthesia History No Hx of Anesthesia Complications and No Family Hx of Anesthesia Complications Sister may have had problem w/ anesthesia, no details known History of PONV No Hx of PONV and No Hx of Motion Sickness Social History Smoking Status: Current every day smoker tobacco type: cigarettes Smoking cigarettes per day: 8 CIGS DAILY - ADVISED NPO Do You Dip or Chew Tobacco: No Hx Alcohol Use: No Hx Substance Use: No substance use type: does not use Review of Systems Pt denies any recent chest pain, shortness of breath above baseline, palpitations, cough, fever or URI. Physical Exam Vital Signs BP: 130/78 P: 80bpm SPO2: 97% RA T: 97.7 F R: 16 Constitutional + obese ENMT Mouth: + dental restorations (few caps) and + chipped teeth (upper R molar); no loose teeth Thyromental Distance: > or= 3.5 Finger Breadths (3.5) Mallampati Class: I Neck + thick neck; neck extension not limited Respiratory normal respiratory effort Auscultation: lungs clear to auscultation bilaterally Cardiovascular Rate/Rhythm: regular rate and regular rhythm Heart Sounds: + murmur (I/ systolic loudest at RSB) Vessels: no carotid bruit Extremities: no edema Testing Laboratory Results 02/13/19 10:45 02/13/19 10:45 02/13/19 02/13/19 10:45 10:45 PT 11.4 INR 1.1 APTT 28.5 Blood Type O Positive Antibody Screen NEGATIVE Electrocardiogram Date: 02/13/19 Findings: + NSR @ (68) Chest X-Ray Date: 02/13/19 FINDINGS: PA and lateral chest radiographs are obtained. No prior studies are available for comparison at the time of dictation. The cardiomediastinal silhouette is unremarkable noting advanced atherosclerotic calcification of the thoracic aorta. Emphysema and chronic interstitial thickening are similar to previous. There is bibasilar scarring/atelectasis. No airspace consolidation or pleural effusion is identified. There is no pneumothorax. The skeletal structures are osteopenic. A left shoulder arthroplasty is in place. Degenerative change is noted throughout the thoracic spine. There is chronic appearing separation of the left acromioclavicular joint. Arthritic change is noted in the right shoulder with a possible os acromiale. IMPRESSION: Emphysema with no active disease in the chest. Echocardiogram Date: 08/11/18 EF: 55-59% Examination is adequate to evaluate the referral indication. Mild concentric LVH. Left ventricular wall motion is normal. Aortic valve is mildly calcified. Borderline to mild aortic valve stenosis is present. Mild aortic valve regurgitation is present. Stress Test Date: 07/05/17 Type: DSE The primary indication after review was deemed appropriate and the examination was performed. The stress echo is negative for inducible ischemia. No arrhythmias. Normal HR and BP response to dobutamine infusion. At rest, normal LV chamber size and wall thickness. Normal LV systolic function without regional wall motion abnormality, EF 5560%. Grade I diastolic dysfunction. The aortic valve is inadequately visualized, unable to accurately determine the number of leaflets.. Moderate aortic valve sclerosis is present. Aortic stenosis is absent. Mild aortic valve regurgitation is present.
--- NOTE | 2019-02-13 11:16 | XRay Report ---
TWO VIEW CHEST CLINICAL HISTORY: Preoperative examination. FINDINGS: PA and lateral chest radiographs are obtained. No prior studies are available for compariso n at the time of dictation. The cardiomediastinal silhouette is unremarkable noting advanced atheros clerotic calcification of the thoracic aorta. Emphysema and chronic interstitial thickening are simil ar to previous. There is bibasilar scarring/atelectasis. No airspace consolidation or pleural effusio n is identified. There is no pneumothorax. The skeletal structures are osteopenic. A left shoulder ar throplasty is in place. Degenerative change is noted throughout the thoracic spine. There is chronic appearing separation of the left acromioclavicular joint. Arthritic change is noted in the right shou lder with a possible os acromiale. IMPRESSION: Emphysema with no active disease in the chest. Electronically signed by: Maximilian Kelly M.D. 02/13/2019 11:15 AM
[2019-02-13 11:41] LABS: Basophils # (auto) 0.04 K/uL (0-0.2); Basophils % (auto) 0.4 %; Eosinophils # (auto) 0.17 K/uL (0-0.5); Eosinophils % (auto) 1.9 %; Hematocrit (blood only) 37.4 % (37-47); Hemoglobin 12.3 g/dL (12.0-16.0); Immature Granulocytes # (auto) 0.02 K/uL (0.00-0.02); Immature Granulocytes % (auto) 0.2 %; Lymphocytes # (auto) 1.58 K/uL (1.2-3.4); Lymphocytes % (auto) 17.2 %; Mean Corpuscular Hgb Conc 32.9 g/dL (32-36); Mean Corpuscular Volume 76.6 fL (80-100); Mean Platelet Volume 9.1 fL (7.4-10.4); Monocytes # (auto) 0.64 K/uL (0.11-0.59); Neutrophils # (auto) 6.73 K/uL (1.4-6.5); Neutrophils % (auto) 73.3 %; Platelet Count 271 K/uL (130-400); RDW Coefficient of Variation 17.3 % (11.5-14.5); RDW Standard Deviation 48.9 fL (36.4-46.3); Red Blood Count 4.88 M/uL (4.2-5.4); White Blood Count 9.18 K/uL (4.8-10.8)
[2019-02-13 11:47] LABS: BUN Creatinine Ratio 18.5 (10-20); Calcium 9.4 mg/dl (8.5-10.1); Creatinine Clr Calc Pharmacy 83.8 ml/min; Potassium 4.1 mmol/L (3.5-5.1)
[2019-02-13 11:51] LABS: INR 1.1 (0.9-1.1); Partial Thromboplastin Ratio 1.1; Partial Thromboplastin Time 28.5 Seconds (21.0-31.0); Prothrombin Time 11.4 Seconds (9.0-12.0)
--- NOTE | 2019-03-14 07:43 | History & Physical Report ---
Date of Service March 14, 2019 Assessment & Plan (1) Rotator cuff arthropathy of right shoulder: We will proceed with a right reverse shoulder arthroplasty. Postoperatively she will be placed in a sling and kept overnight for postoperative medical management. She plans to use energy physical therapy upon discharge. Present on Admission?: Yes History of Present Illness Chief Complaint: Rotator cuff arthropathy of the right shoulder Primary Care Provider: Beth Talbot DO Raissa is a pleasant 73-year-old female who underwent a left reverse shoulder arthroplasty in 2014. She did very well with that. Unfortunately she is having a lot of pain in her right shoulder. She has a history of multiple rotator cuff repairs on the right side. The most recent one being done in 2012 by another provider. Unfortunately her shoulder pain is continued. She is having trouble sleeping at night and doing activities away from her body. She has elected to proceed with a right reverse shoulder arthroplasty. Allergies Allergy/AdvReac Type Severity Reaction Status Date / Time niacin AdvReac Unknown Flushing/ Verified 02/06/19 09:56 Lightheaded Home Medications Home Medications Medication Instructions Recorded Confirmed Type aspirin [Aspir-81] 81 mg PO HS 02/06/19 02/06/19 History atorvastatin 40 mg PO QAM 02/06/19 02/06/19 History cyanocobalamin (vitamin B-12) 5,000 mcg SUBLINGUAL QAM 02/06/19 02/06/19 History [Vitamin B-12] diphenhydramine HCl [Benadryl] 25 mg PO HS PRN 02/06/19 02/06/19 History ferrous sulfate 325 mg PO QAM 02/06/19 02/06/19 History glyburide 5 mg PO QAM 02/06/19 02/06/19 History magnesium 250 mg PO QAM 02/06/19 02/06/19 History metformin 500 mg PO BID 02/06/19 02/06/19 History multivitamin 1 cap PO QAM 02/06/19 02/06/19 History omeprazole 20 mg PO QAM 02/06/19 02/06/19 History sertraline 25 mg PO QAM 02/06/19 02/06/19 History Past Med/Surg History Medical History Acid reflux Back problem COPD (chronic obstructive pulmonary disease) No inhalers. Some HUYNH. Cardiac murmur I/ systolic on exam at PAT. Trace to mild noted on 2018 echo. Diabetes Hyperlipidemia Sleep apnea CAN'T TOLERATE CPAP Surgical History History of colonoscopy History of repair of left rotator cuff History of repair of left rotator cuff ANCHORS CAME OUT AND REPAIRED History of repair of right rotator cuff History of total replacement of left shoulder joint History of total right knee replacement Family History Mother Family history of ovarian cancer Sister Family history of lung cancer Family history of brain cancer Social History Preferred Language: Mexican Communication Ability: Effective Beliefs That Will Affect Care: Worship Worship Beliefs: BUDDHIST Current Living Situation: Alone Feels Safe at Home: Yes Smoking Status: Current every day smoker Tobacco Type: cigarettes Cigarettes Per Day: 8 CIGS DAILY - ADVISED NPO Hx Alcohol Use: No Hx Substance Use: No Review of Systems All systems reviewed & are unremarkable except as noted in HPI & below Physical Exam Constitutional: WD/WN, vitals as above Eyes: PERRL, conjunctivae normal, anicteric sclerae ENMT: external ear and nose normal, oropharynx normal Neck: trachea midline, no thyromegaly Respiratory: normal respiratory effort Cardiovascular: RRR, no murmur, no edema Gastrointestinal (Abdomen): normal bowel sounds, soft, nontender, no hepatosplenomegaly Musculoskeletal: Physical examination of the right shoulder reveals decreased range of motion and significant weakness. There is tenderness palpation along the anterior glenohumeral joint line. The right upper extremity is neurovascularly intact. Psychiatric: A+Ox3, euthymic affect Results & Data Diagnostic Findings Radiographs of the right shoulder show some signs of osteoarthritis with blunting of the greater tuberosity and some superior migration of the humeral head on the glenoid.
[~2019-03-16 07:02] MED LIST changes: +ACETAMINOPHEN 500 MG TAB PO SCH; -ASPI81TA28 PO; -B-CO-25 PO; +CEFAZOLIN 2000MG 2,000 MG/15 ML SYR IV SCH; -DIPH25CA37 PO; +FAMOTIDINE 20 MG TAB PO SCH; -FRRS300 PO; +GABAPENTIN 300 MG CAP PO SCH; -GLC/500 PO; -GLYB-108 PO; -HYDR-5688 PO; +LR 15ML/HR IV SCH; +LR 60ML/HR IV SCH; -MAGNESIUM PO; -PRLSR20 PO; -PRVC/40 PO; +ROPIVACAINE 0.5% HCL/PF 150 MG, BUPIVACAINE 0.5% MPF 30 ML, EPINEPHrine 30MG/30ML (OR U... INSTIL SCH; -SERT25TA PO; -SUMA25TA12 PO; +TRANEXAMIC ACID 1,000 MG **IV Intra-op IV SCH; +TRANEXAMIC ACID 1,000 MG **IV Pre-op IV SCH; -[UNRECOGNIZED DRUG - OTHER] PO
[2019-03-16] MEDS ORDERED: BUPIVACAINE 0.5 % 5 MG/1 ML PF 10ML VIAL ONE (07:14)
[2019-03-16] MEDS ORDERED: fentaNYL citrate 100 MCG/2 ML VIAL ONE (07:59)
[2019-03-16] MEDS ORDERED: NEOSTIGMINE METHYLSULFATE 5 MG/5 ML SYR ONE (07:59)
[2019-03-16] MEDS ORDERED: ONDANSETRON INJ 2 MG/ML 2 ML VIAL ONE (07:59)
[2019-03-16] MEDS ORDERED: ROCURONIUM BROMIDE 10 MG/ML 5 ML VIAL ONE (07:59)
[2019-03-16] MEDS ORDERED: PROPOFOL IV EMULSION 10 MG/ML 20 ML VIAL IV ONE (07:59)
[2019-03-16] MEDS ORDERED: DEXAMETHASONE SOD INJ 4 MG/ML VIAL ONE (07:59)
[2019-03-16] MEDS ORDERED: LIDOCAINE HCL 2% 2 ML VIAL/AMP(20MG/ML) INFIL ONE (07:59)
[2019-03-16] MEDS ORDERED: MIDAZOLAM HCL 1 MG/ML 2ML VIAL ONE (07:59)
[2019-03-16] MEDS ORDERED: GLYCOPYRROLATE 0.2 MG/ML VIAL ONE (07:59)
--- NOTE | 2019-03-16 08:55 | History & Physical Bridge Note ---
Date of Service March 16, 2019 History & Physical Bridge Note I have examined the patient, reviewed the History & Physical and in the interval since the performance of the History & Physical I have noted the following changes of clinical significance: no changes noted
[2019-03-16] MEDS ORDERED: ORTHO JOINT ANESTHETIC ONE (09:40)
[2019-03-16] MEDS ORDERED: ONDANSETRON INJ 2 MG/ML 2 ML VIAL IV PRN ×2 (10:05→13:15)
[2019-03-16] MEDS ORDERED: ATROPINE SULFATE 0.1 MG/ML 10ML SYR IV PRN (10:05)
[2019-03-16] MEDS ORDERED: KETOROLAC 30 MG/ML VIAL IV PRN (10:05)
[2019-03-16] MEDS ORDERED: HYDROmorphone INJ 1 MG/ML SYRINGE IV PRN (10:05)
[2019-03-16] MEDS ORDERED: LABETALOL HCL IV 5 MG/ML 20ML IV PRN (10:05)
[2019-03-16] MEDS ORDERED: PHENYLEPHRINE HCL 10 MG/ML VIAL ONE (11:52)
[2019-03-16] MEDS ORDERED: ePHEDrine sulfate 50 MG/ML AMP ONE (11:52)
[2019-03-16] MEDS ORDERED: ESMOLOL HCL INJ 10 MG/ML 10ML VIAL IV ONE (11:52)
--- NOTE | 2019-03-16 11:58 | Operative Report ---
Post Operative Report Pre & Post Diagnosis Operation Date: 03/16/19 10:00 Pre-Op Diagnosis: Cuff Arthropathy, Right Shoulder Post-Op Diagnosis: Cuff Arthropathy, Right Shoulder Procedure Operation Date: 03/16/19 10:00 Actual Procedures p Right Reverse Total Shoulder Arthroplasty(Right) - Kehinde Meredith DO Surgeon Kehinde Meredith DO Hairspring Studder Kehinde Massey PAC Estimated Blood Loss 150 Findings Consistent with Post-Op Diagnosis Specimens Right humeral head Complications none Disposition Disposition: Recovery Room Indications Raissa is a pleasant 73-year-old female who presented my office with chronic increasing right shoulder pain. She has a history of a large right rotator cuff repair in the past. Unfortunately she has had a recurrence of shoulder pain and weakness. MRI and clinical examination was diagnostic for osteoarthritis and chronic rotator cuff tear. After failing conservative treatment, she elected to proceed with a right reverse shoulder arthroplasty. Description of Procedure Implants used: I used a [employer] Comprehensive reverse total shoulder arthroplasty system with a size 12 press fit mini humeral stem, a standard humeral tray and a standard humeral bearing, a 25 mm mini baseplate with a 6.5 mm central screw and superior and inferior locking screws, and a size 36 mm eccentric glenosphere. The patient arrived at [facility] for the above procedure. There were seen in the preoperative holding area and the operative extremity was identified and signed. They were given a preoperative antibiotic and an interscalene nerve block. They were taken back to the operating room, laid on table in supine position, and put under general anesthesia. They were then put into the beachchair position. The shoulder was then prepped and draped in sterile fashion. A timeout was done and the patient in the operative extremity was properly identified. A deltopectoral approach was used. Dissection was taken down through the fascia and the deltoid was retracted laterally and the conjoined tendon was retracted medially. The anterior shoulder was exposed. The long head of the biceps tendon was tenodesed to the upper border of the pectoralis major. The subscapularis was then released off the lesser tuberosity with a centimeter of cuff tissue remaining. The inferior capsule was released and the humeral head was dislocated. A canal finding reamer was sent down the center of the humeral canal. Sequential reaming up to a size 12 reamer was done. Off that reamer, a proximal humeral resection guide was placed. The proximal humerus was resected at 135 of inclination and 25 of retroversion. Osteophytes were then removed and the glenoid was exposed. Time was spent doing a complete capsular and labral release. The glenoid guide was then placed in the inferior aspect of the glenoid. A 3.2 mm Steinmann pin was then placed into the glenoid vault at 10 of inclination. The glenoid baseplate was then reamed. The final size 25 mm mini baseplate was then impacted in the place. A 6.5 mm central screw was then placed followed by superior and inferior locking screws. A 36 mm eccentric glenoid sphere was then impacted into place. Surrounding soft tissues were then injected with 100 cc an orthopedic pain control cocktail. The proximal humerus was then exposed. Sequential broaching of the humerus up to a size 12 broach was done. Off that broach a standard humeral tray was trialed. The shoulder was then reduced, brought through a full range of motion and felt to be stable. The shoulder was then dislocated and the broach was removed. The final size 12 mini press-fit humeral stem was then impacted into place. A standard humeral bearing was then snapped onto a standard humeral tray and the ring-lock mechanism was engaged. The humeral tray was then impacted onto the humeral stem. The shoulder was once again reduced, brought through a full range of motion and felt to be stable. The subscapularis was then tenodesed back to the lesser tuberosity with transosseous FiberWire sutures and side to side sutures with the arm in 45 of external rotation. A dilute betadyne lavage was then done for 3 minutes. The joint was then irrigated with normal saline solution. Hemostasis was obtained. The skin was then closed with 2-0 Vicryl, 3-0V lock suture, and munir. A soft dressing and a regular arm sling was placed. The patient was then extubated and transferred to a hospital bed. They were taken to the postanesthesia care unit in stable condition. They tolerated the procedure well. I attest to the content of the Intraoperative Record and any orders documented therein. Any exceptions are noted below.
--- NOTE | 2019-03-16 12:42 | XRay Report ---
XR shoulder RT min 2V routine CLINICAL HISTORY: Post shoulder surgery COMPARISON: Right shoulder radiographs December 13, 2018. FINDINGS: Right basilar opacity favors atelectasis. Alignment of the reverse total right shoulder ar throplasty is anatomic. There is no periprosthetic fracture or unexpected radiopaque foreign body. Sk in munir are present. IMPRESSION: Expected findings following right shoulder arthroplasty. Electronically signed by: Kei Wray M.D. 03/16/2019 12:41 PM
[2019-03-16] MEDS ORDERED: NALOXONE HCL 0.4 MG/1 ML VIAL/CARP IV PRN (13:15)
[2019-03-16] MEDS ORDERED: OXYCODONE HCL IR 5 MG TAB (IMMEDIATE RELEASE) PO PRN (13:15)
[2019-03-16] MEDS ORDERED: METOCLOPRAMIDE HCL INJ 5 MG/ML 2 ML VIAL IV PRN (13:15)
[2019-03-16] MEDS ORDERED: BISACODYL 10 MG SUPP PR PRN (13:15)
[2019-03-16] MEDS ORDERED: HYDROmorphone INJ 0.5 MG/0.5 ML SYR IV PRN (13:15)
[2019-03-16] MEDS ORDERED: MAGNESIUM HYDROXIDE SUSP 30 ML UDC PO PRN (13:15)
--- NOTE | 2019-03-16 13:25 | Anesthesiology Progress Note ---
Date of Service March 16, 2019 Anesthesia Post Procedure Vital Signs Vital Signs: Temp Pulse Pulse Resp BP BP Pulse Ox 03/16/19 12:55 52 L 16 135/52 L 93 03/16/19 12:45 36.4 C L 53 L 15 140/53 L 94 03/16/19 12:35 52 L 16 139/61 96 03/16/19 12:25 61 15 150/58 H 96 03/16/19 12:15 36 C L 73 16 164/65 H 95 03/16/19 07:54 36.4 C L 80 20 149/42 H 94 03/16/19 07:45 36.4 C L 80 18 149/92 H 94 Transfer of Care Handoff Completed per policy Notes Mental Status: alert / awake / arousable Patient Amnestic to Procedure: Yes Nausea / Vomiting: adequately controlled Pain: adequately controlled Airway Patency, RR, SpO2: stable & adequate BP & HR: stable & adequate Hydration State: stable & adequate Anesthetic Complications: no major complications apparent
[2019-03-16] MEDS ORDERED: PHARMACY GLYCEMIC MGMT CONSULT PRN (13:26)
[2019-03-16] MEDS ORDERED: GLUCOSE 40% GEL 15 GM TUBE PO PRN (13:45)
[2019-03-16] MEDS ORDERED: DEXTROSE 50% 50 ML SYRINGE IV PRN (13:45)
[2019-03-16] MEDS ORDERED: GLUCAGON FOR INJ 1 MG VIAL SQ PRN (13:45)
[2019-03-16] MEDS ORDERED: GLUCOSE 10 TABS/TUBE PO PRN (13:45)
[2019-03-16] MEDS ORDERED: CARBOHYDRATES FOR HYPOGLYCEMIA PO PRN (13:45)
[2019-03-16] MEDS ORDERED: INSULIN GLARGINE SOLOSTAR 100 UNITS/ML 3 ML PEN SC ONE (14:00)
--- NOTE | 2019-03-16 14:03 | Pharmacy Report ---
Glycemic Control Consultation - Date of Service March 16, 2019 - Scope Scope: Glycemic Pharmacist consulted by CLEOPATRA Villegas on 03/16 for glycemic control and to write orders per [facility] inpatient glycemic control protocol - Objective Weight: 107.2 kg Accuchecks BSG (last 24hrs): 03/16/19 03/16/19 03/16/19 07:30 13:04 13:39 POC Glucose 177 H 167 H 175 H - Recent Pertinent Medications Outpatient Anti-diabetic Regimen: * Glyburide 5 mg qAM * Metformin 500 mg BID * A1c = unknown Risk Factors for Insulin Resistance: * Steroids: Decadron 4 mg IV given intraop * Recent Surgery: POD 0 s/p shoulder arthroplasty * Diet: NPO -> type 2 diabetes - Assessment & Plan Assessment & Plan: ASSESSMENT: * 73 y/o female admitted s/p shoulder surgery. She has a history of type 2 diabetes, managed on 2 oral agents as an outpatient. Outpatient control unknown as no recent A1c available; however, I suspect she is not that well controlled with a fasting of 177 mg/dL today and a similar result on PAT labwork. * Pt is maintained on oral antidiabetic agents as an outpatient * Oral agents are not recommended for inpatient use d/t drug interactions, changing PO intake, and difficulty titrating for acute hyper/hypoglycemia. ADA recommends re-initiating outpatient oral agents 1-2 days prior to discharge if/when appropriate if they were held on admission. * Will hold oral agents for admission and utilize SQ basal bolus insulin regimen which is the recommended regimen for inpatient glycemic control. * Will initiate weight based insulin dosing for insulin giacomo patient and titrate based on BSG trends. * Initial dosing will be full dose of basal using wt/stress of 2 and stress of 3 for bolus coverage PLAN FOR INPATIENT GLYCEMIC CONTROL: * Holding outpatient oral diabetes medications - can resume metformin POD 1 or 2, as long as patient meets criteria * Basal insulin * Lantus 36 units x 1 now, then * Lantus BID per the following scale (starting 7/6 AM): * 10 units for BSG 150 or below * 18 units for BSG > 150 * Bolus insulin * NovoLog per scale ACHS or Q6hrs while NPO * Goal Range: Low 110 mg/dL - High 150 mg/dL * Correction Factor: 15 mg/dL/unit * Nutritional / Prandial insulin per carb ratio of 1 unit per 5 grams CHO consumed * A1c w/ AM labs as per [facility] standards for A1c within past 90 days. Once this is obtained, can provide discharge recommendations * Please note that the plan above was derived based on current level of insulin resistance and hospital stress. These recommendations are appropriate for inpatient admission only. Plan of care upon discharge will need to be reassessed to avoid potential outpatient hypo/hyperglycemia. Thank you.
[2019-03-16] MEDS: ACETAMINOPHEN 500 MG TAB PO SCH ×2 (14:21→21:19)
[2019-03-16] MEDS: INSULIN ASPART 100 UNITS/ML 3 ML PEN SC SCH ×3 (14:21→21:19)
[2019-03-16] MEDS: SODIUM CHLORIDE 0.9% 1000ML 1,000 ML IV SCH (17:25)
[2019-03-16] MEDS: CEFAZOLIN 2000MG 2,000 MG/15 ML SYR IV SCH (18:02)
[2019-03-16] MEDS ORDERED: COUGH DROP (SUGAR FREE) LOZ 24 LOZ/1 BOX BUCCAL PRN (20:28)
[2019-03-16] MEDS ORDERED: SENNA 8.6 MG TAB PO SCH (21:00)
[2019-03-16] MEDS ORDERED: METFORMIN HCL 500 MG TAB PO SCH (21:00)
[2019-03-16] MEDS ORDERED: ASPIRIN 81 MG ECTAB PO SCH (21:00)
[2019-03-16] MEDS: DOCUSATE SODIUM 100 MG CAP PO SCH (21:19)
[2019-03-17] MEDS: SODIUM CHLORIDE 0.9% 1000ML 1,000 ML IV SCH (02:27)
[2019-03-17] MEDS: CEFAZOLIN 2000MG 2,000 MG/15 ML SYR IV SCH (02:28)
[2019-03-17] MEDS: ACETAMINOPHEN 500 MG TAB PO SCH (05:36)
[2019-03-17 05:43] LABS: Basophils # (auto) 0.01 K/uL (0-0.2); Basophils % (auto) 0.1 %; Hematocrit (blood only) 31.6 % (37-47); Immature Granulocytes # (auto) 0.05 K/uL (0.00-0.02); Immature Granulocytes % (auto) 0.3 %; Lymphocytes # (auto) 1.02 K/uL (1.2-3.4); Lymphocytes % (auto) 6.2 %; Mean Corpuscular Hgb Conc 31.6 g/dL (32-36); Mean Corpuscular Volume 78.8 fL (80-100); Mean Platelet Volume 9.4 fL (7.4-10.4); Monocytes # (auto) 0.92 K/uL (0.11-0.59); Monocytes % (auto) 5.6 %; Neutrophils # (auto) 14.57 K/uL (1.4-6.5); Neutrophils % (auto) 87.8 %; Platelet Count 226 K/uL (130-400); RDW Coefficient of Variation 17.3 % (11.5-14.5); RDW Standard Deviation 49.8 fL (36.4-46.3); Red Blood Count 4.01 M/uL (4.2-5.4); White Blood Count 16.57 K/uL (4.8-10.8)
[2019-03-17 06:14] LABS: Calcium 8.6 mg/dl (8.5-10.1); Creatinine Clr Calc Pharmacy 72.4 ml/min; Est GFR (Non-African American) 63.9; Potassium 4.4 mmol/L (3.5-5.1)
[2019-03-17 07:27] LABS: Estimated Average Glucose 192 mg/dl; Hemoglobin A1C 8.3 % (4.5-5.6)
--- NOTE | 2019-03-17 08:38 | Orthopedic Progress Note ---
Date of Service March 17, 2019 Assessment & Plan (1) Rotator cuff arthropathy of right shoulder: Overall she is doing very well. She is not having much pain in the right shoulder. She will be seen by physical therapy this morning for range of motion exercises. She can be discharged home later today. She plans to use energy physical therapy upon discharge. Present on Admission?: Yes Subjective Raissa was seen and examined at bedside this morning. Overall she is doing very well. She is not having much pain in the right shoulder. She was able to get some sleep last night. She has no complaints. Physical Exam Musculoskeletal: On physical examination of the right shoulder, the dressing is clean and dry. She is wearing a sling as instructed. Her radial, median, and ulnar nerves are checked and intact at the wrist. Her axillary nerve was not checked yet. Results & Data Vital Signs (Past 12 Hours) Vital Signs Temp Pulse Pulse Resp BP Pulse Ox 03/17/19 07:23 36.5 C 49 L 18 122/69 92 03/17/19 03:32 57 L 150/74 H 03/17/19 02:57 36.5 C 57 L 16 170/75 H 90 03/16/19 23:29 36.4 C L 55 L 16 154/74 H 91 Laboratory Results H & H 02/13/19 03/17/19 Range/Units 10:45 05:13 Hgb 12.3 10.0 L (12.0-16.0) g/dL Hct 37.4 31.6 L (37-47) % Coagulation 02/13/19 Range/Units 10:45 INR 1.1 (0.9-1.1) Diagnostic Findings Postoperative x-rays of the right shoulder show the prosthesis to be in anatomic alignment without any evidence of fracture, dislocation, or loosening.
--- NOTE | 2019-03-17 08:40 | Discharge Summary ---
Date of Service March 17, 2019 Admission HPI Per Admitting Provider Raissa is a pleasant 73-year-old female who underwent a left reverse shoulder arthroplasty in 2014. She did very well with that. Unfortunately she is having a lot of pain in her right shoulder. She has a history of multiple rotator cuff repairs on the right side. The most recent one being done in 2012 by another provider. Unfortunately her shoulder pain is continued. She is having trouble sleeping at night and doing activities away from her body. She has elected to proceed with a right reverse shoulder arthroplasty. Specialty Data Orthopedic H & H 02/13/19 03/17/19 Range/Units 10:45 05:13 Hgb 12.3 10.0 L (12.0-16.0) g/dL Hct 37.4 31.6 L (37-47) % Coagulation 02/13/19 Range/Units 10:45 INR 1.1 (0.9-1.1) Discharge Data Consultations 03/16/19 13:15 Consult Case Management - Discharge Planning Routine Procedures Performed Operation Date: 03/16/19 10:00 Actual Procedures p Right Reverse Total Shoulder Arthroplasty(Right) - Kehinde Meredith DO Hospital Course (1) Rotator cuff arthropathy of right shoulder: On March 16, 2019 Raissa arrived at [facility] and underwent a right reverse shoulder arthroplasty without complication. She had a general anesthetic and a left interscalene nerve block. Postoperatively she was placed in a sling and discharged to general orthopedic floors. Her hospital course was uneventful. On postop day #1 her H&H was stable and her pain was well cont rolled. She was able to participate well with physical therapy doing range of motion exercises. She was then discharged home. She will follow-up with orthopedics in 2 weeks. She is planning to have energy physical therapy at home. Discharge Instructions Home Medications Medication Instructions Recorded Confirmed aspirin [Aspir-81] 81 mg PO HS 02/06/19 02/06/19 atorvastatin 40 mg PO QAM 02/06/19 02/06/19 cyanocobalamin (vitamin B-12) 5,000 mcg SUBLINGUAL QAM 02/06/19 02/06/19 [Vitamin B-12] diphenhydramine HCl [Benadryl] 25 mg PO HS PRN 02/06/19 03/16/19 ferrous sulfate 325 mg PO QAM 02/06/19 02/06/19 glyburide 5 mg PO [facility] 02/06/19 02/06/19 magnesium 250 mg PO [facility] 02/06/19 02/06/19 metformin 500 mg PO BID 02/06/19 02/06/19 multivitamin 1 cap PO [facility] 02/06/19 02/06/19 omeprazole 20 mg PO [facility] 02/06/19 02/06/19 sertraline 25 mg PO [facility] 02/06/19 02/06/19 Previous Rx's Medication Instructions Recorded hydrocodone-acetaminophen 1 tab PO Q6H PRN #40 tab 03/17/19
[2019-03-17] MEDS ORDERED: SERTRALINE HCL 50 MG TABLET PO SCH (09:00)
[2019-03-17] MEDS ORDERED: MAGNESIUM OXIDE 400 MG TAB PO SCH (09:00)
[2019-03-17] MEDS ORDERED: MULTIVITAMIN TAB PO SCH (09:00)
[2019-03-17] MEDS ORDERED: ATORVASTATIN 40 MG TAB PO SCH (09:00)
[2019-03-17] MEDS ORDERED: INSULIN GLARGINE SOLOSTAR 100 UNITS/ML 3 ML PEN SC SCH (09:00)
[2019-03-17] MEDS ORDERED: PANTOprazole 40 MG TAB PO SCH (09:00)
[2019-03-17] MEDS ORDERED: CYANOCOBALAMIN (VITAMIN B-12) 2,500 MCG TAB.SUBL SL SCH (09:00)
[2019-03-17] MEDS ORDERED: glyBURIDE 5 MG TAB PO SCH (09:00)
[2019-03-17] MEDS: DOCUSATE SODIUM 100 MG CAP PO SCH (09:11)
[2019-03-17] MEDS: INSULIN ASPART 100 UNITS/ML 3 ML PEN SC SCH (09:14)
--- NOTE | 2019-03-17 10:16 | Anesthesiology Progress Note ---
Date of Service March 17, 2019 Anesthesia Post Procedure Vital Signs Vital Signs: Temp Pulse Pulse Pulse Resp BP Pulse Ox 03/17/19 09:30 36.5 C 57 L 18 122/69 92 03/17/19 07:23 36.5 C 49 L 18 122/69 92 03/17/19 03:32 57 L 150/74 H 03/17/19 02:57 36.5 C 57 L 16 170/75 H 90 03/16/19 23:29 36.4 C L 55 L 16 154/74 H 91 03/16/19 19:19 36.4 C L 55 L 16 145/77 H 93 03/16/19 16:12 36.5 C 97 H 16 144/63 H 97 03/16/19 15:10 36.3 C L 56 L 16 131/64 97 03/16/19 14:01 36.5 C 54 L 20 120/64 96 03/16/19 13:35 53 L 18 117/65 96 03/16/19 13:10 36.4 C L 53 L 15 134/70 96 03/16/19 12:55 52 L 16 135/52 L 93 03/16/19 12:45 36.4 C L 53 L 15 140/53 L 94 03/16/19 12:35 52 L 16 139/61 96 03/16/19 12:25 61 15 150/58 H 96 03/16/19 12:15 36 C L 73 16 164/65 H 95 Transfer of Care Handoff Completed per policy Notes Mental Status: alert / awake / arousable and participated in evaluation Patient Amnestic to Procedure: Yes Nausea / Vomiting: adequately controlled Pain: adequately controlled Airway Patency, RR, SpO2: stable & adequate BP & HR: stable & adequate Hydration State: stable & adequate Anesthetic Complications: no major complications apparent and Pt Satisfied with anesthetic care
== END 2019-03-17 11:48 | disposition home health service (06) | DRG 483 ==
LOC: ASU 07:02 → 3E 12:21